=== PATIENT | male | born 1960 | race African-American/Black ===

== ENCOUNTER 2019-12-05 05:12 | Emergency (ER) | payer OTHER ==
[~2019-12-05] VITALS: Ht 193 cm; Wt 172.4 kg
[2019-12-05 06:50] VITALS: BP 142/99
== END 2019-12-05 07:21 | disposition home or self-care (01) ==
LOC: ER 05:12
DX: M10.9 Gout, unspecified (principal); E78.5 Hyperlipidemia, unspecified; I10 Essential (primary) hypertension; Z90.49 Acquired absence of other specified parts of digestive tract; Z88.0 Allergy status to penicillin